=== PATIENT | male | born 1965 | race Caucasian/White ===

== ENCOUNTER 2017-06-16 17:23 | Emergency (ER) | payer OTHER ==
[~2017-06-16] VITALS: Ht 180.3 cm; Wt 88.5 kg
[2017-06-16] MEDS ORDERED: HYDROCODONE/APAP 10MG-325MG TAB PO ONE (17:30)
--- NOTE | 2017-06-16 18:11 | Diagnostic Imaging Report ---
Left Ankle - 3 views HISTORY: Pain. COMPARISON: None available. FINDINGS: Bones: No acute displaced fracture. No expansile lytic or sclerotic lesion. Joints: The joint spaces are well-maintained. No dislocation. Soft tissues: Soft tissue swelling is present around the ankle, most prominent in the lateral malleolus. IMPRESSION: Soft tissue swelling, without evidence of osseous abnormality, may represent a ligamentous injury. Signed by: Dr. Chemo Nguyen M.D. on 06/16/2017 6:08 PM
--- NOTE | 2017-06-16 18:12 | Diagnostic Imaging Report ---
Left tibia and fibula - 2 views HISTORY: Pain. COMPARISON: None available. FINDINGS: Bones: No acute displaced fracture. No expansile lytic or sclerotic lesion. Joints: The joint spaces are well-maintained. No dislocation. Soft tissues: The soft tissues appear unremarkable. IMPRESSION: No acute radiographic abnormality. Signed by: Dr. Chemo Nguyen M.D. on 06/16/2017 6:09 PM
[2017-06-16] MEDS ORDERED: ONDANSETRON HCL INJ 2 MG/ML VIAL INJ STA (18:20)
[2017-06-16 18:54] VITALS: BP 121/98
[2017-06-16] MEDS ORDERED: ONDANSETRON HCL 4 MG ORAL DISINTEGRATING TAB PO ONE (19:00)
[2017-06-16] MEDS ORDERED: MORPHINE SULFATE 2 MG/ML SYR INJ ONE (19:15)
== END 2017-06-16 19:39 | disposition home or self-care (01) ==
LOC: ER 17:23
DX: S93.492A Sprain of other ligament of left ankle, initial encounter (principal); Y93.89 Activity, other specified; Y92.008 Other place in unspecified non-institutional (private) residence as the place of occurrence of the external cause
CPT/HCPCS: 29515; 73590; 73610; 99283; J2270

== ENCOUNTER 2022-02-02 17:41 | Observation (INO) | payer OTHER ==
[~2022-02-02] VITALS: Ht 180.3 cm; Wt 98.0 kg
[~2022-02-02 17:41] MED LIST: FENTANYL CITRATE/PF 100MCG/2 ML INJ ONE; MIDAZOLAM HCL 2 MG/2 ML VIAL ONE
[2022-02-02] MEDS ORDERED: SODIUM CHLORIDE 0.9% 1000ML 1,000 ML IV STA (18:08)
[2022-02-02] MEDS ORDERED: Morphine 4mg INJECTION 4 MG/ML INJ IV ONE (18:15)
[2022-02-02] MEDS ORDERED: ASPIRIN 81 MG CHEW TAB PO ONE (18:15)
[2022-02-02 18:21] LABS: BASOPHILS % 0.2 % (0.0-1.0); EOSINOPHILS % 0.3 % (0.0-6.0); HEMATOCRIT 40.2 % (38.2-49.6); HEMOGLOBIN 13.2 g/dL (14.0-18.0); LYMPHOCYTES # (AUTO) 1.7 (1.0-3.2); LYMPHOCYTES % 17.5 % (18.0-39.1); MEAN CORPUSCULAR HEMOGLOBIN 30.4 pg (28-32); MEAN CORPUSCULAR HGB CONC 32.8 g/dL (31-35); MEAN CORPUSCULAR VOLUME 92.6 fL (81-99); MONOCYTES # (AUTO) 0.9 (0.2-0.8); NEUTROPHILS # (AUTO) 7.2 (2.1-6.9); NEUTROPHILS % 72.7 % (38.7-80.0); PLATELET COUNT 293 x10e3/uL (140-360); RED BLOOD COUNT 4.34 x10e6/uL (4.3-5.7)
[2022-02-02] MEDS ORDERED: ONDANSETRON HCL INJ 2MG/ML 2ML 2 MG/ML VIAL IV STA (18:42)
[2022-02-02 18:43] LABS: ALANINE AMINOTRANSFERASE 18 IU/L (0-55); ALBUMIN 4.3 g/dL (3.5-5.0); ALBUMIN/GLOBULIN RATIO 1.3 (0.8-2.0); ALKALINE PHOSPHATASE 36 IU/L (40-150); ANION GAP 13.9 mmol/L (8-16); BLOOD UREA NITROGEN 8 mg/dL (7-26); BUN/CREATININE RATIO 8 (6-25); CALCIUM 9.6 mg/dL (8.4-10.2); CARBON DIOXIDE 27 mmol/L (22-29); CHLORIDE 102 mmol/L (98-107); CREATINE KINASE 96 IU/L (30-200); CREATININE, SERUM 0.96 mg/dL (0.72-1.25); GLUCOSE 114 mg/dL (74-118); POTASSIUM 3.9 mmol/L (3.5-5.1); SODIUM 139 mmol/L (136-145)
[2022-02-02] MEDS ORDERED: IOPAMIDOL 370 MG/ML 100 ML INFUS..BTL INJ ONE (19:09)
[2022-02-02] MEDS ORDERED: PIPERACILLIN/TAZOBACTAM 4.5 GM in SODIUM CHLORIDE 0.9% 100 ML IV STA (19:30)
[2022-02-02 19:40] LABS: CLARITY,URINE CLEAR (CLEAR); COLOR,URINE YELLOW (YELLOW); KETONES,URINE NEGATIVE (NEGATIVE); LEUKOCYTE ESTERASE ,URINE NEGATIVE (NEGATIVE); NITRITE,URINE NEGATIVE (NEGATIVE); PROTEIN,URINE DIPSTICK NEGATIVE (NEGATIVE); URINE UROBILINOGEN 0.2 mg/dL (0.2 - 1)
[2022-02-02] MEDS ORDERED: SODIUM CHLORIDE FLUSH 10 ML SYR INJ PRN (19:45)
[2022-02-02 19:49] LABS: RBC,URINE 0-5 /HPF (0-5)
[2022-02-02] MEDS: SODIUM CHLORIDE 0.9% 1000ML 1,000 ML IV SCH (20:56)
[2022-02-02] MEDS: Morphine 4mg INJECTION 4 MG/ML INJ IV PRN (20:57)
[2022-02-02 22:00] VITALS: BP 144/98
[2022-02-03] VITALS (7 sets, daily range): BP systolic 114–153; BP diastolic 57–95
[2022-02-03] MEDS: Morphine 4mg INJECTION 4 MG/ML INJ IV PRN (00:49)
[2022-02-03] MEDS ORDERED: ACETAMINOPHEN 1000 MG/100 ML IV STA (05:30)
[2022-02-03] MEDS: SODIUM CHLORIDE 0.9% 1000ML 1,000 ML IV SCH ×3 (05:54→20:13)
[2022-02-03 07:07] LABS: BASOPHILS % 0.2 % (0.0-1.0); EOSINOPHILS # (AUTO) 0.1 (0.0-0.4); EOSINOPHILS % 0.8 % (0.0-6.0); HEMATOCRIT 38.2 % (38.2-49.6); HEMOGLOBIN 12.2 g/dL (14.0-18.0); LYMPHOCYTES # (AUTO) 1.6 (1.0-3.2); LYMPHOCYTES % 17.1 % (18.0-39.1); MEAN CORPUSCULAR HEMOGLOBIN 30.5 pg (28-32); MEAN CORPUSCULAR HGB CONC 31.9 g/dL (31-35); MEAN CORPUSCULAR VOLUME 95.5 fL (81-99); MONOCYTES % 10.3 % (4.4-11.3); NEUTROPHILS # (AUTO) 6.6 (2.1-6.9); NEUTROPHILS % 71.4 % (38.7-80.0); PLATELET COUNT 202 x10e3/uL (140-360); RED CELL DISTRIBUTION WIDTH 12.2 % (11.7-14.4)
[2022-02-03 07:41] LABS: CALCIUM 8.7 mg/dL (8.4-10.2); CREATININE, SERUM 0.88 mg/dL (0.72-1.25)
[2022-02-03] MEDS: FAMOTIDINE 20 MG/2 ML VIAL IV SCH ×2 (09:00→17:00)
[2022-02-03] MEDS ORDERED: ROCURONIUM BROMIDE 10 MG/ML 5ML VIAL IV ONE (09:02)
[2022-02-03] MEDS ORDERED: LIDOCAINE HCL 2% LOCAL INJ 5 ML SDV VIAL INJ ONE (09:02)
[2022-02-03] MEDS ORDERED: PROPOFOL IV EMULSION 10 MG/ML 20 ML VIAL ONE (09:02)
[2022-02-03] MEDS ORDERED: ONDANSETRON HCL INJ 2MG/ML 2ML 2 MG/ML VIAL ONE (09:02)
[2022-02-03] MEDS ORDERED: GLYCOPYRROLATE INJ 0.2 MG/ML VIAL ONE (09:02)
[2022-02-03] MEDS ORDERED: SEVOFLURANE INHAL SOLN 250 ML PEN BTL ONE (09:02)
[2022-02-03] MEDS ORDERED: NEOSTIGMINE 1 MG/ML 10ML VIAL ONE (09:02)
[2022-02-03] MEDS ORDERED: KETOROLAC TROMETHAMINE 30 MG/ML VIAL ONE (09:02)
[2022-02-03] MEDS ORDERED: DEXAMETHASONE SOD PHOS INJ 4 MG/ML SDV ONE (09:02)
[2022-02-03] MEDS ORDERED: POVIDONE IODINE 0.05% 0.05 % ML PO ONE (09:02)
[2022-02-03] MEDS ORDERED: BUPIVACAINE 0.25% 30ML SDV ONE (09:59)
[2022-02-03] MEDS ORDERED: MEPERIDINE HCL INJ 25 MG/ML VIAL ONE (11:31)
[2022-02-03] MEDS: ACETAMINOPHEN 325 MG TAB PO PRN (20:58)
[2022-02-04] VITALS (7 sets, daily range): BP systolic 102–161; BP diastolic 66–107
[2022-02-04] MEDS: ACETAMINOPHEN 325 MG TAB PO PRN ×2 (02:00→08:44)
[2022-02-04] MEDS: SODIUM CHLORIDE 0.9% 1000ML 1,000 ML IV SCH ×2 (03:45→19:45)
[2022-02-04] MEDS ORDERED: wellbutrin (06:20)
[2022-02-04] MEDS: FAMOTIDINE 20 MG/2 ML VIAL IV SCH ×2 (08:38→17:00)
[2022-02-04 08:51] LABS: BASOPHILS % 0.2 % (0.0-1.0); EOSINOPHILS # (AUTO) 0.1 (0.0-0.4); EOSINOPHILS % 0.8 % (0.0-6.0); HEMATOCRIT 33.7 % (38.2-49.6); HEMOGLOBIN 10.7 g/dL (14.0-18.0); LYMPHOCYTES # (AUTO) 2.7 (1.0-3.2); LYMPHOCYTES % 31.6 % (18.0-39.1); MEAN CORPUSCULAR HEMOGLOBIN 30.3 pg (28-32); MEAN CORPUSCULAR HGB CONC 31.8 g/dL (31-35); MEAN CORPUSCULAR VOLUME 95.5 fL (81-99); MONOCYTES # (AUTO) 0.9 (0.2-0.8); MONOCYTES % 10.8 % (4.4-11.3); NEUTROPHILS # (AUTO) 4.9 (2.1-6.9); NEUTROPHILS % 56.5 % (38.7-80.0); PLATELET COUNT 232 x10e3/uL (140-360); RED BLOOD COUNT 3.53 x10e6/uL (4.3-5.7); RED CELL DISTRIBUTION WIDTH 12.1 % (11.7-14.4)
[2022-02-04 09:10] LABS: ANION GAP 10.8 mmol/L (8-16); CALCIUM 8.4 mg/dL (8.4-10.2); CREATININE, SERUM 0.8 mg/dL (0.72-1.25); POTASSIUM 3.8 mmol/L (3.5-5.1)
[2022-02-04] MEDS ORDERED: LEVOFLOXACIN250 MG PO (11:51)
[2022-02-04] MEDS ORDERED: ULTRAM50 MG PO (11:53)
[2022-02-04] MEDS: Morphine 4mg INJECTION 4 MG/ML INJ IV PRN (13:00)
[2022-02-04] MEDS ORDERED: TRAMADOL HCL 50 MG TAB PO STA (14:44)
[2022-02-04] MEDS ORDERED: TRAMADOL HCL 50 MG TAB PO PRN (14:45)
[2022-02-04] MEDS ORDERED: HYDROMORPHONE 1MG/1ML INJ IV PRN (14:45)
[2022-02-05] VITALS: BP 146/92
[2022-02-05] MEDS: SODIUM CHLORIDE 0.9% 1000ML 1,000 ML IV SCH (03:45)
[2022-02-05 04:00] VITALS: BP 101/75
[2022-02-05 05:47] LABS: BASOPHILS # (AUTO) 0.1 (0.0-0.1); BASOPHILS % 0.9 % (0.0-1.0); EOSINOPHILS # (AUTO) 0.1 (0.0-0.4); EOSINOPHILS % 1.8 % (0.0-6.0); HEMATOCRIT 33.8 % (38.2-49.6); HEMOGLOBIN 10.8 g/dL (14.0-18.0); LYMPHOCYTES # (AUTO) 2.4 (1.0-3.2); LYMPHOCYTES % 43.4 % (18.0-39.1); MEAN CORPUSCULAR HEMOGLOBIN 30.3 pg (28-32); MEAN CORPUSCULAR VOLUME 94.9 fL (81-99); MONOCYTES # (AUTO) 0.5 (0.2-0.8); MONOCYTES % 9.1 % (4.4-11.3); NEUTROPHILS # (AUTO) 2.5 (2.1-6.9); NEUTROPHILS % 44.6 % (38.7-80.0); PLATELET COUNT 247 x10e3/uL (140-360); RED BLOOD COUNT 3.56 x10e6/uL (4.3-5.7); RED CELL DISTRIBUTION WIDTH 11.9 % (11.7-14.4)
[2022-02-05 06:08] LABS: ANION GAP 12.7 mmol/L (8-16); CALCIUM 8.5 mg/dL (8.4-10.2); CREATININE, SERUM 0.8 mg/dL (0.72-1.25); POTASSIUM 3.7 mmol/L (3.5-5.1)
[2022-02-05 08:04] VITALS: BP 101/75
[2022-02-05 08:07] VITALS: BP 132/72
[2022-02-05 09:17] VITALS: BP 132/72
== END 2022-02-05 09:11 | disposition home or self-care (01) ==
LOC: ER 18:15 → ERHOLD 19:41 → MED/SURG 21:50
PROVIDERS: ADMIT Internal Medicine; ATTEND Internal Medicine
DX: K35.80 Unspecified acute appendicitis (principal); I10 Essential (primary) hypertension; K59.00 Constipation, unspecified; E87.2 Acidosis; E66.9 Obesity, unspecified; Z68.30 Body mass index [BMI] 30.0-30.9, adult; F32.A Depression, unspecified; Z88.5 Allergy status to narcotic agent; Z20.822 Contact with and (suspected) exposure to COVID-19
CPT/HCPCS: 36415 ×4; 44970; 71045; 74177; 80048 ×3; 80053; 81001; 82550; 82553; 83690; 84484; 85025 ×4; 88304; 93005; 94799 ×2; 99284; C1766; G0378 ×4; J0131; J1100; J1885; J2001; J2175; J2250; J2270 ×3; J2405 ×2; J2543 ×3; J2704; J2710; J3010; J7030 ×2; J7050; Q9967; U0002